=== PATIENT | female | born 1955 ===

== ENCOUNTER 2017-10-14 11:55 | Outpatient (CLI) | payer MEDICARE, MEDICAID ==
--- NOTE | 2017-10-14 13:37 | RAD ---
CHEST TWO VIEWS: HISTORY: Chronic bronchitis. Evaluate for pneumonia. COMPARISON: None. FINDINGS: Two views of the chest show a normal cardiac silhouette. The pulmonary vessels and pulmonary hilum a re normal. The costophrenic angles are clear. On the PA projection, there is a possible right infra hilar infiltrate that is difficult to correspond on the lateral projection. Continued surveillance i s recommended. Adequate aeration of the upper lungs. No pneumothorax or osseous abnormalities. IMPRESSION: Questionable right perihilar infiltrate. Short-term follow-up radiograph is recommended. POS: [email or web address]
== END 2017-10-14 11:56 | disposition home or self-care (01) ==
LOC: MADRAD 11:55
PROVIDERS: ATTEND Family Medicine
DX: J20.9 Acute bronchitis, unspecified (principal)
CPT/HCPCS: 71046

== ENCOUNTER 2017-11-17 14:21 | Outpatient (CLI) | payer MEDICARE, MEDICAID ==
--- NOTE | 2017-11-17 15:52 | RAD ---
CHEST 2 VIEWS: COMPARISON: 10/14/17. HISTORY: Bronchitis. FINDINGS: Normal cardiac silhouette. Pulmonary vessels and hilum are normal. Costophrenic angles are clear. No consolidation or mass. No pneumothorax or osseous abnormalities. IMPRESSION: No acute cardiopulmonary process. POS: [facility]
== END 2017-11-17 14:22 | disposition home or self-care (01) ==
LOC: MADLABBHPM 14:21
PROVIDERS: ATTEND Family Medicine
DX: J20.9 Acute bronchitis, unspecified (principal); R30.0 Dysuria
CPT/HCPCS: 36415; 71046; 87086

== ENCOUNTER 2022-10-06 15:27 | Outpatient (CLI) | payer MEDICARE, MEDICAID | END 2022-10-06 15:28 | disposition home or self-care (01) | LOC: MADRAD 15:27 | PROVIDERS: ATTEND Internal Medicine | DX: J45.51 Severe persistent asthma with (acute) exacerbation (principal); J32.9 Chronic sinusitis, unspecified; J31.0 Chronic rhinitis | CPT/HCPCS: 70220; 71046 ==